=== PATIENT | male | born 1985 | race Caucasian/White ===

== ENCOUNTER 2023-04-14 18:59 | Emergency (ER) | payer BC, SELFPAY ==
[2023-04-14 19:02] VITALS: BP 158/86; PULSE 80; RESP 16; TEMP 36.4; O2SAT 98; BMI 22.5
--- NOTE | 2023-04-14 19:23 | ED_ITS ---
HPI - Extremity Injury (Lower) General Chief Complaint: Extremity Injury, Lower Stated Complaint: Lower Pain Time Seen by Provider: 04/14/23 19:10 Source: patient Mode of arrival: walk-in History of Present Illness HPI Narrative: patient presents complaining of pain left elbow . Works at [employer] and is on his feet all day and is lifting etc. Only has discomfort of the left elbow area when he is lifting or using his arm. his feet are numb mainly on the lateral side of both feet. No weakness . Numbness discomfort is tolerable. No foot drop. no fever . No injury he can recall Related Data Allergies Allergy/AdvReac Type Severity Reaction Status Date / Time No Known Drug Allergies Allergy Verified 04/14/23 19:07 Review of Systems ROS Status of ROS 10 or more systems reviewed and unremark able except as noted in history and below Exam Constitutional Vital Signs, click to edit/add: Last Vital Signs Temp 97.6 F 04/14/23 19:02 Pulse 80 04/14/23 19:02 Resp 16 04/14/23 19:02 BP 158/86 H 04/14/23 19:02 Pulse Ox 98 04/14/23 19:02 Common normals: no apparent distress, average body habitus, oriented x3, no limitations, healthy appearing, alert and well nourished Eye Common normals: EOMs intact bilaterally and conjunctivae normal Respiratory Common normals: normal respiratory effort, no retractions, no use of accessory muscles and clear to auscultation bilaterally Cardio Common normals: regular rate, regular rhythm, S1 normal heart sound and S2 normal heart sound GI Common normals: Normal to inspection, nondistended, normoactive bowel sounds present, soft to palpation and non-tender Extremity Common normals: normal to inspection and full ROM Other: mild tenderness of left lateral epicondyle Neuro Common normals: oriented x3, moves all extremities, no focal motor deficits and no sensory deficits noted Psych Appearance: grossly normal Course Vital Signs Vital signs: Vital Signs Temperature 97.6 F 04/14/23 19:02 Pulse Rate 80 04/14/23 19:02 Respiratory Rate 16 04/14/23 19:02 Blood Pressure 158/86 H 04/14/23 19:02 Pulse Oximetry 98 04/14/23 19:02 Temperature 97.6 F 04/14/23 19:02 Pulse Rate 80 04/14/23 19:02 Respiratory Rate 16 04/14/23 19:02 Blood Pressure 158/86 H 04/14/23 19:02 Pulse Oximetry 98 04/14/23 19:02 MDM - Extremity Injury (Lower) MDM Narrative Medical decision making narrative: patient presents with discomfort at left elbow. States he was informed it was likely from overuse syndrome of his arm. States the arm has become more uncomfortable. Has tenderness of the lat. epicondyle. Also complains of numbness of his bilat lat. feet. Normal exam of feet. Patient provided with a velcro splint for his elbow and referred to ortho. Advised he should be seen by neurology for his feet for possible tarsal tunnel syndrome Discharge Plan Discharge Chief Complaint: Extremity Injury, Lower Clinical Impression: Epicondylitis, lateral, left, Paresthesia of both feet Instructions: Tennis Elbow (ED), Paresthesia (ED) Additional Instructions: follow up with Neurology and with orthopedics. Wear splint when working Referrals: [facility] [Primary Care Provider] - 1 week
== END 2023-04-14 20:06 | disposition home or self-care (01) ==
PROVIDERS: Emergency Provider Internal Medicine; PCP Family Medicine
DX: M77.12 Lateral epicondylitis, left elbow (principal); R20.2 Paresthesia of skin
CPT/HCPCS: 99283